=== PATIENT | male | born 1940 | race Caucasian/White ===

== ENCOUNTER → 2017-03-16 | Outpatient (CLI) | payer MEDICARE, BC | LOC: RAD 12:22 | DX: R06.02 Shortness of breath (principal) ==

== ENCOUNTER → 2017-07-13 | Outpatient (CLI) | payer MEDICARE, BC | LOC: RAD 11:20 | DX: R07.89 Other chest pain (principal); R05 Cough; R10.816 Epigastric abdominal tenderness; J30.9 Allergic rhinitis, unspecified; K21.9 Gastro-esophageal reflux disease without esophagitis ==

== ENCOUNTER → 2017-07-27 | Outpatient (CLI) | payer MEDICARE, BC ==
[~2017-07-27] VITALS: Ht 172.7 cm; Wt 104.5 kg
[~2017-07-27] MED LIST: ADULT LOW DOSE81 MG PO; BENZONATATE200 MG PO; FLOMAX0.4 MG PO; HCTZ 25MG25 MG PO; LISINOPRIL20 MG PO; ZEGERID 20 MG-11 CAP PO; [UNRECOGNIZED DRUG - REMARK] PO
[2017-07-27 10:59] VITALS: BP 125/66
== END ==
LOC: AMSURD 10:19
DX: R07.89 Other chest pain (principal); R10.12 Left upper quadrant pain; K21.9 Gastro-esophageal reflux disease without esophagitis; J98.11 Atelectasis; K80.20 Calculus of gallbladder without cholecystitis without obstruction
CPT/HCPCS: Q9965; Q9967

== ENCOUNTER → 2017-08-17 | Outpatient (CLI) | payer MEDICARE, BC ==
[2017-07-27 10:59] VITALS: BP 125/66
[2017-08-17 10:19] LABS: ALBUMIN 4.2 g/dL (3.5-5.0); DIRECT BILIRUBIN 0.4 mg/dL (0.0-0.4); TOTAL BILIRUBIN 0.9 mg/dL (0.2-1.3); TOTAL PROTEIN 8.1 g/dL (6.3-8.2)
== END ==
LOC: LAB 09:59
PROVIDERS: Family Medicine
DX: K21.9 Gastro-esophageal reflux disease without esophagitis (principal); R10.12 Left upper quadrant pain; Z23 Encounter for immunization; R05 Cough; R07.89 Other chest pain

== ENCOUNTER → 2017-08-20 | Outpatient (CLI) | payer MEDICARE, BC ==
[2017-07-27 10:59] VITALS: BP 125/66
== END ==
LOC: RAD 08:43
DX: K80.20 Calculus of gallbladder without cholecystitis without obstruction (principal); K21.9 Gastro-esophageal reflux disease without esophagitis; R10.11 Right upper quadrant pain; Z23 Encounter for immunization; R05 Cough; R07.89 Other chest pain

== ENCOUNTER → 2017-11-16 | Outpatient (CLI) | payer MEDICARE, BC ==
[2017-07-27 10:59] VITALS: BP 125/66
== END ==
LOC: LAB 08:35
DX: N40.1 Benign prostatic hyperplasia with lower urinary tract symptoms (principal); R35.1 Nocturia

== ENCOUNTER → 2018-10-07 | Outpatient (CLI) | payer MEDICARE, BC ==
[2017-07-27 10:59] VITALS: BP 125/66
[2018-10-07 09:08] LABS: ALBUMIN 4.8 g/dL (3.5-5.0); CALCIUM 9.7 mg/dL (8.4-10.2); POTASSIUM 4.3 mmol/L (3.6-5.0); TOTAL BILIRUBIN 0.8 mg/dL (0.2-1.3); TOTAL PROTEIN 8.5 g/dL (6.3-8.2)
== END ==
LOC: LAB 08:38
PROVIDERS: Family Medicine
DX: I10 Essential (primary) hypertension (principal); E78.5 Hyperlipidemia, unspecified; N40.0 Benign prostatic hyperplasia without lower urinary tract symptoms

== ENCOUNTER → 2019-05-08 | Outpatient (CLI) | payer MEDICARE, BC ==
[2017-07-27 10:59] VITALS: BP 125/66
[2019-05-08 10:25] LABS: URINE WBC 0 /hpf (0-3)
[2019-05-08 11:12] LABS: POTASSIUM 4.4 mmol/L (3.5-5.1)
[2019-05-08 11:13] LABS: CALCIUM 9.5 mg/dL (8.3-10.5)
[2019-05-08 11:14] LABS: URINE APPEARANCE CLEAR; URINE BILIRUBIN NEGATIVE (NEGATIVE); URINE BLOOD NEGATIVE (NEGATIVE); URINE COLOR YELLOW; URINE GLUCOSE NEGATIVE (NEGATIVE); URINE KETONE NEGATIVE (NEGATIVE); URINE LEUKOCYTE ESTERASE NEGATIVE (NEGATIVE); URINE NITRATE NEGATIVE (NEGATIVE); URINE PROTEIN(semi-quant) NEGATIVE (NEGATIVE); URINE UROBILINOGEN NORMAL (NORMAL)
== END ==
LOC: LAB 10:18
PROVIDERS: Family Medicine
DX: L30.9 Dermatitis, unspecified (principal); M54.6 Pain in thoracic spine; N40.0 Benign prostatic hyperplasia without lower urinary tract symptoms

== ENCOUNTER → 2019-05-12 | Outpatient (CLI) | payer MEDICARE, BC ==
[2017-07-27 10:59] VITALS: BP 125/66
== END ==
LOC: RAD 09:17
DX: I12.9 Hypertensive chronic kidney disease with stage 1 through stage 4 chronic kidney disease, or unspecified chronic kidney disease (principal); R10.9 Unspecified abdominal pain; M54.6 Pain in thoracic spine

== ENCOUNTER → 2024-11-26 | Outpatient (CLI) | payer MEDICARE ==
[~2024-11-26] MED LIST changes: +DUPIXENT200 MG/1.1 SQ; +OMEPRAZOLE40 MG PO
== END ==
LOC: RAD 10:59
DX: R09.89 Other specified symptoms and signs involving the circulatory and respiratory systems (principal)

== ENCOUNTER → 2024-12-24 | Outpatient (CLI) | payer MEDICARE | LOC: CARDREHAB 08:00 | DX: G47.33 Obstructive sleep apnea (adult) (pediatric) (principal) | CPT/HCPCS: G0399 ==